=== PATIENT | female | born 1980 | race Caucasian/White ===

== ENCOUNTER 2017-08-11 19:39 | Emergency (ER) | payer BC ==
[~2017-08-11] VITALS: Ht 157.5 cm; Wt 56.7 kg
[2017-08-11 19:40] VITALS: BP 128/68
--- NOTE | 2017-08-11 19:40 | NUR ---
Pt arrived EMS from [facility]. Pt states eating when she started feeling anxious, short of breath with pharygeal swelling, hands feeling clammy, and hot flashes. A&Ox4. No SOB or dyspnea upon interview. Pt c/o nausea, anxiety, hot flashes and is tachy at 125. Allergies to Benadryl, Peanuts, Scallups, Rasberries.
--- NOTE | 2017-08-11 19:42 | NUR ---
PT RANJANA TREADWELLS
--- NOTE | 2017-08-11 19:44 | NUR ---
PT TAKEN TO 11
[2017-08-11] MEDS ORDERED: methylPREDNISolone SS 125 MG/2 ML VIAL IVP ONE (21:30)
--- NOTE | 2017-08-11 21:55 | NUR ---
IV medication given per Dr. Sykes. IV line patent, flushed with 10ml NS before and after medication administration.
[2017-08-11 23:03] VITALS: BP 128/68
--- NOTE | 2017-08-11 23:03 | NUR ---
Patient discharged with v/s stable without SOB. Written and verbal after care instructions given and explained. Patient alert, oriented and verbalized understanding of instructions. Ambulatory with steady gait. All questions addressed prior to discharge. ID band removed. Patient advised to follow up with PMD. Rx of Epien 2-Pack Auto-Injector given. Patient educated on indication of medication including possible reaction and side effects. Opportunity to ask questions provided and answered.
== END 2017-08-11 23:04 | disposition home or self-care (01) ==
LOC: MED 19:39
DX: T78.1XXA Other adverse food reactions, not elsewhere classified, initial encounter (principal); X58.XXXA Exposure to other specified factors, initial encounter
CPT/HCPCS: 96374; 99284; J2930